=== PATIENT | female | born 1985 | race Asian ===

== ENCOUNTER 2022-10-12 13:06 | Emergency (ER) | payer OTHER, SELFPAY ==
[2022-10-12 13:13] VITALS: BP 144/101; PULSE 102; RESP 16; TEMP 36.9; O2SAT 97; BMI 22.7
--- NOTE | 2022-10-12 13:52 | ED.GENADULT ---
HPI - General Adult General Chief complaint: Nausea/Vomiting Stated complaint: Both eyes irritated, vomiting, rib pain Time Seen by Provider: 10/12/22 13:17 History of Present Illness HPI narrative: This 36-year-old female comes in with several issues. She has bilateral eye irritation and discharge. She states that she has a couple fractured ribs and has been taking oxycodone. This rib pain is been present for more than a month and she does not report any particular injury event. She did have excessive coughing prior to this and may have triggered rib fractures. [facility] is [facility] and went to [facility] couple times and finally [address] scan of her chest which identified the rib fractures. There is no sign of pulmonary embolism or infection. She comes in today reporting nausea with vomiting and this of course triggers worsening rib pain. She does not report any fevers. Related Data Home Medications Medication Instructions Recorded Confirmed desmopressin 0.83 mcg/spray (0.1 mcg intranasal 10/12/22 mL) nasal spray gabapentin 300 mg capsule 300 mg PO TID 10/12/22 10/12/22 methomeso PO DAILY 10/12/22 oxycodone 5 mg capsule 5 mg PO Q8H 10/12/22 10/12/22 Previous Rx's Medication Instructions Recorded ketorolac 10 mg tablet 10 mg PO Q8H 5 days #15 tabs 10/12/22 ondansetron HCl 4 mg tablet 4 mg PO Q6H #20 tabs 10/12/22 polymyxin B sulfate 10,000 1 drp ophthalmic (eye) Q3H 7 days 10/12/22 unit-trimethoprim 1 mg/mL eye #10 mL drops (Polytrim) Review of Systems Status of ROS: Reports: 10 or more systems reviewed and unremarkable except as noted in History and below Narrative: Constitutional: No fevers, no weight gain or loss. Eyes: Bilateral irritation with redness and discharge. HENT: No congestion, no sore throat, no ear pain. Cardiovascular: No palpitations. Respiratory: No shortness of breath, no wheezes, no cough. Chest: Right lateral rib pain. Gastrointestinal: No abdominal pain, no vomiting, no diarrhea. Genitourinary: No dysuria, no hematuria. Musculoskeletal: Normal range of motion. Skin: No rashes, no pruritis. Neurological: No dizziness, weakness, sensory change, speech change. Endo/Heme/Allergies: No bruising or bleeding. No polydipsia. Pysch: no suicidality, no anxiety, no insomnia. All other systems reviewed and are negative. Exam Narrative: Exam Narrative: Constitutional: Well-developed, well-nourished, no acute distress. HEENT: Normocephalic, atraumatic. Bilateral eye injection with some evidence of purulent discharge. Neck: Normal range of motion. Nontender. Supple. Heart: Regular. No murmurs. Normal rate. Intact distal pulses. Lungs: Clear to auscultation. No wheezes, rhonchi, or rales. Chest: Right lateral rib pain. Abdomen: Normal bowel sounds. Nontender. No rebound tenderness. Genitalia: Deferred. Back: No midline tenderness. Normal range of motion. Extremities: Normal range of motion. No injury. Skin: Intact. No rash. Warm. No erythema or pallor. Neurologic: No altered sensation. No weakness. Alert and oriented. Psychiatric: No suicidality. No anxiety or depression. No insomnia. Nursing notes and vitals signs are reviewed. Const: Vital Signs, click to edit/add: Vital Signs - 24 hr 10/12/22 13:13 Temperature 98.4 F Pulse Rate [Right Pulse Oximeter] 102 H Respiratory Rate 16 Blood Pressure [Ri ght Upper Arm] 144/101 H Pulse Oximetry 97 Oxygen Delivery Me thod Room Air Course Vital Signs Vital signs: Initial Vital Signs Temperature 98.4 F 10/12/22 13:13 Temperature Source Temporal Artery Scan 10/12/22 13:13 Pulse Rate 102 H 10/12/22 13:13 Respiratory Rate 16 10/12/22 13:13 Blood Pressure 144/101 H 10/12/22 13:13 Blood Pressure Mean 115 10/12/22 13:13 Blood Pressure Position Sitting 10/12/22 13:13 Pulse Oximetry 97 10/12/22 13:13 Oxygen Delivery Method 10/12/22 13:13 Vital Signs Temperature 98.4 F 10/12/22 13:13 Pulse Rate 102 H 10/12/22 13:13 Respiratory Rate 16 10/12/22 13:13 Blood Pressure 144/101 H 10/12/22 13:13 Pulse Oximetry 97 10/12/22 13:13 Oxygen Delivery Method 10/12/22 13:13 Temperature 98.4 F 10/12/22 13:13 Pulse Rate 102 H 10/12/22 13:13 Respiratory Rate 16 10/12/22 13:13 Blood Pressure 144/101 H 10/12/22 13:13 Pulse Oximetry 97 10/12/22 13:13 Oxygen Delivery Method 10/12/22 13:13 Medical Decision Making MDM Narrative Medical decision making narrative: This patient comes in with symptoms typical of a bacterial conjunctivitis. She received a prescription for Polytrim ophthalmic solution. She also has nausea and vomiting that may be related to the oxycodone which she has just finished taking. This was prescribed for her to treat her rib pain from identification of a couple fractured ribs. She received an oral dose of Zofran today and a prescription for the same. She also received a prescription for Toradol. A rib belt was applied and this brought some further relief. Discharge Plan Discharge Clinical Impression: Rib pain on right side, Conjunctivitis, Vomiting Patient Disposition: Home, Self-Care Condition: Stable Additional Instructions: Take medication as prescribed and needed. Follow up with MD or return if worsening. Prescriptions: New ondansetron HCl 4 mg tablet 4 mg PO Q6H Qty: 20 0RF ketorolac 10 mg tablet 10 mg PO Q8H 5 Days Qty: 15 0RF polymyxin B sulf-trimethoprim [Polytrim] 10,000 unit- 1 mg/mL drops 1 drp ophthalmic (eye) Q3H 7 Days Qty: 10 0RF Rx Instructions: while awake; do not exceed 6 doses in 24 hours No Action gabapentin 300 mg capsule 300 mg PO TID oxycodone 5 mg capsule 5 mg PO Q8H desmopressin 0.83 mcg/spray (0.1 mL) spray,non-aerosol intranasal methomeso PO DAILY Stand Alone Forms: [employer] Info Instructions
[2022-10-12] MEDS: ONDANSETRON ODT 4 MG TAB PO (14:04)
== END 2022-10-12 14:36 | disposition home or self-care (01) ==
PROVIDERS: Emergency Provider Emergency Medicine Emergency Medical Services
DX: R07.81 Pleurodynia (principal); H10.023 Other mucopurulent conjunctivitis, bilateral
CPT/HCPCS: 99284; A9270